=== PATIENT | male | born 1975 | race Two or more races ===

== ENCOUNTER 2022-12-06 02:28 | Emergency (ER) | payer MEDICAID, OTHER ==
[~2022-12-06] VITALS: Ht 172.7 cm; Wt 84.0 kg
[2022-12-06 03:55] VITALS: BP 147/98; PULSE 86; RESP 16; O2SAT 98
[2022-12-06] MEDS ORDERED: IBU600T PO (04:13)
[2022-12-06] MEDS ORDERED: CLIN300C70 PO (04:13)
[2022-12-06] MEDS ORDERED: MUPI2OIN2 EX (04:13)
[2022-12-06] MEDS ORDERED: diphenhdrAMINE HCL 25 MG CAP PO ONE (04:15)
[2022-12-06] MEDS ORDERED: HYDROcodone-ACET 5/325MG TAB PO ONE (04:15)
[2022-12-06] MEDS ORDERED: DexAMETHasone SOD PHOS 10MG/1ML VIAL INJ IM ONE (04:15)
== END 2022-12-06 04:07 | disposition home or self-care (01) ==
LOC: ER 02:31
DX: S50.361A Insect bite (nonvenomous) of right elbow, initial encounter (principal); L03.113 Cellulitis of right upper limb; W57.XXXA Bitten or stung by nonvenomous insect and other nonvenomous arthropods, initial encounter; Y93.89 Activity, other specified; Y92.89 Other specified places as the place of occurrence of the external cause; Y99.8 Other external cause status
CPT/HCPCS: 96372; 99283; J1100